=== PATIENT | male | born 1925 | race Caucasian/White ===

== ENCOUNTER → 2016-07-08 | Outpatient (CLI) | payer OTHER ==
[~2016-07-08] MED LIST: ACET-1311 PO; ASPI81TA28 PO; CARB1SOL8 OT; CIPR1TAB11 PO; COEN200C4 PO; GLIM4TAB2 PO; HYDR-5688 PO; INSDGI SC; INSUINJ7 SQ; LAMO25TA PO; MAGNSUS5 PO; METO-217 PO; MIRT30TA2 PO; MIRT30TA5 PO; PANT40TA PO; PENI-82 PO; QUET1TAB30 PO; RISP1TAB68 PO; SIMELIQ PO; SIMV40TA2 PO; SITA100T3 PO; SODI1ENE; VENL150T33 PO; [UNRECOGNIZED DRUG - CODE] OPB; [UNRECOGNIZED DRUG - CODE] PO
[2016-07-08 15:06] LABS: BLOOD UREA NITROGEN 13 mg/dl (7-18); BUN/CREATININE RATIO 11.1 (10-20); CALCIUM 8.4 mg/dl (8.5-10.1); CARBON DIOXIDE 27 mmol/L (21-32); CHLORIDE 105 mmol/L (98-107); GLUCOSE 274 mg/dl (70-99); POTASSIUM 4.4 mmol/L (3.5-5.1); SODIUM 141 mmol/L (136-145)
== END | disposition home or self-care (01) ==
LOC: C.LABFOXDH 14:32
PROVIDERS: ATTEND Internal Medicine
DX: F44.89 Other dissociative and conversion disorders (principal); R81 Glycosuria

== ENCOUNTER → 2016-08-18 | Outpatient (CLI) | payer OTHER ==
[2016-08-18 09:27] LABS: HEMATOCRIT 40.3 % (42-52); MEAN CELL VOLUME 88.6 fL (80-100); MEAN CORPUSCULAR HEMOGLOBIN 30.1 pg (25-34); MEAN PLATELET VOLUME 10.2 fL (7.4-10.4); PLATELET COUNT 197 K/uL (130-400); RED BLOOD COUNT 4.55 M/uL (4.7-6.1); WHITE BLOOD COUNT 6.25 K/uL (4.8-10.8)
[2016-08-18 09:55] LABS: ALB/GLOB RATIO 0.9 (0.9-2); ALKALINE PHOSPHATASE 120 U/L (45-117); ALT/SGPT 18 U/L (12-78); AST/SGOT 17 U/L (15-37); BLOOD UREA NITROGEN 16 mg/dl (7-18); BUN/CREATININE RATIO 13.7 (10-20); CALCIUM 8.5 mg/dl (8.5-10.1); CARBON DIOXIDE 26 mmol/L (21-32); CHLORIDE 110 mmol/L (98-107); POTASSIUM 3.7 mmol/L (3.5-5.1); SODIUM 145 mmol/L (136-145)
[2016-08-18 10:31] LABS: GLUCOSE 44 mg/dl (70-99)
== END ==
LOC: C.LABFOXAC 08:58
PROVIDERS: ATTEND Internal Medicine
DX: R41.81 Age-related cognitive decline (principal)

== ENCOUNTER → 2016-08-23 | Outpatient (CLI) | payer OTHER ==
[~2016-08-23] MED LIST changes: +OPTIRAY 320 IV PRN
--- NOTE | 2016-08-23 09:45 | DIAGNOSTIC IMAGING REPORT ---
CT brain combination HEAD COMBO CLINICAL HISTORY: MENTAL STATUS CHANGE TECHNIQUE: Transaxial acquisition pre and post intravenous contrast enhancement COMPARISON STUDY: 02/21/2016 FINDINGS: Mild mucosal thickening left maxillary sinus. Sinuses otherwise are clear. No evidence for acute intracranial hemorrhage. No evidence for pathologic postcontrast enhancement. Mild atrophy and chronic small vessel change of aging. IMPRESSION: Mild age-related change. No acute process. Electronically signed by: Jay Garcia M.D. 08/23/2016 9:43 AM Dictated Date/Time: 08/23/2016 9:41 AM
== END | disposition home or self-care (01) ==
LOC: C.CTS 09:13
PROVIDERS: ATTEND Nurse Practitioner Family
DX: R41.82 Altered mental status, unspecified (principal)

== ENCOUNTER → 2016-08-25 | Outpatient (CLI) | payer OTHER ==
[~2016-08-25] MED LIST changes: -OPTIRAY 320 IV PRN
--- NOTE | 2016-08-25 16:12 | EEG Procedure Note ---
EEG Procedure Note Date of Service Aug 25, 2016. Start / End Times Start Time: 2:13 PM End Time: 2:33 PM Referring Physician DO Lee History 89-year-old male with episodes of confusion. EEG for further evaluation of possible seizure etiology. Home Medication List Scheduled Alfuzosin HCl (Uroxatral), 10 MG PO HS Artificial Tear Solution (Natures Tears 0.1-0.3 %), 2 DROPS OPB BID Aspirin (Aspirin Ec), 81 MG PO DAILY Coenzyme Q10 (Ubidecarenone) (Coq-10), 200 MG PO DAILY Glimepiride (Glimepiride), 4 MG PO BID Insulin Glargine (Lantus), 40 UNITS SC QPM Insulin Glargine (Lantus), 60 UNITS SC QAM Magnesium Hydroxide (Milk Of Magnesia), 30 ML PO DAILY/PRN Metoprolol Succinate (Toprol Xl), 50 MG PO DAILY Mirtazapine (Mirtazapine Odt), 30 MG PO QPM Pantoprazole (Protonix), 40 MG PO DAILY Simvastatin (Zocor), 40 MG PO QPM Sitagliptin Phosphate (Januvia), 100 MG PO DAILY Venlafaxine Hcl (Venlafaxine Hcl Er), 150 MG PO DAILY Scheduled PRN Acetaminophen (Tylenol), 650 MG PO Q4 PRN for Pain or Fever Hydrocodone/Acetaminophen 5MG/325MG ([place] 5MG/325MG), 1-2 TAB PO Q4H PRN for Pain Simethicone (Simethicone), 30 ML PO Q4H PRN for Indigestion Description This is a 21 electrode EEG with a single channel dedicated to limited EKG. The electrodes were placed in accordance with the International 10-20 system. At the start of this recording the patient was in an awake state. The background was well organized with a symmetric mix of moderate amplitude theta/ alpha and beta frequencies. There was a symmetric moderate amplitude 7-8 Hz posterior dominant rhythm that was reactive to eye opening and closure. Hyperventilation was not done. Photic stimulation at various frequencies did not produce any abnormalities. Drowsiness was indicated by decrease in muscle artifact and slowing of the background rhythm. Interpretation This is an abnormal routine EEG secondary to mild background slowing. There was no electrographic seizures or epileptiform discharges. Clinical Correlation This EEG indicates a mild encephalopathy of nonspecific etiology.
== END | disposition home or self-care (01) ==
LOC: C.NEUR 13:34
PROVIDERS: ATTEND Nurse Practitioner Family
DX: R41.82 Altered mental status, unspecified (principal)

== ENCOUNTER → 2016-09-22 | Outpatient (CLI) | payer OTHER ==
[2016-09-22 09:00] LABS: BLOOD UREA NITROGEN 16 mg/dl (7-18); BUN/CREATININE RATIO 14.4 (10-20); CALCIUM 8.5 mg/dl (8.5-10.1); CARBON DIOXIDE 28 mmol/L (21-32); CHLORIDE 108 mmol/L (98-107); GLUCOSE 88 mg/dl (70-99); POTASSIUM 3.7 mmol/L (3.5-5.1); SODIUM 143 mmol/L (136-145)
[2016-09-22 09:21] LABS: ESTIMATED AVERAGE GLUCOSE 203 mg/dl; HA1C FLAG Normal (Normal)
== END | disposition home or self-care (01) ==
LOC: C.LABFOXAN 08:36
PROVIDERS: ATTEND Internal Medicine
DX: E11.9 Type 2 diabetes mellitus without complications (principal)

== ENCOUNTER → 2017-01-08 | Outpatient (CLI) | payer OTHER | LOC: C.LABFOXAC 08:21 | PROVIDERS: ATTEND Internal Medicine | DX: Z29.9 Encounter for prophylactic measures, unspecified (principal) ==

== ENCOUNTER → 2017-03-23 | Outpatient (CLI) | payer OTHER ==
[~2017-03-23] MED LIST changes: -HYDR-5688 PO; -MIRT30TA5 PO; -SIMELIQ PO; -SITA100T3 PO
[2017-03-23 08:38] LABS: BLOOD UREA NITROGEN 17 mg/dl (7-18); CALCIUM 8.8 mg/dl (8.5-10.1); CARBON DIOXIDE 28 mmol/L (21-32); CHLORIDE 107 mmol/L (98-107); ESTIMATED AVERAGE GLUCOSE 226 mg/dl; GLUCOSE 174 mg/dl (70-99); HA1C FLAG Normal (Normal); SODIUM 142 mmol/L (136-145)
--- NOTE | 2017-03-27 11:28 | CODING QUERY NO DIAGNOSIS ---
: 1927 TREATMENT RENDERED WITHOUT A DIAGNOSIS To promote full compliance with coding requirements relating to patient care, physician participation is requested in all cases of veterinary manager uncertainty. Please assist us with providing a diagnosis/symptom for the test(s) below: A diagnosis/symptom was not documented on your Order. A valid diagnosis/symptom is required to bill all insurances. Please remember that we are unable to code a diagnosis of rule out, probable, possible, questionable, or suspected. Tests that require a diagnosis: DOS: 03/23/17 * Partial Renal Panel DIAGNOSIS: * Hemoglobin A1C DIAGNOSIS: * Basic Metabolic Panel DIAGNOSIS: Provider Signature: Date: Thank you Dione Olson Health Information Management Once completed, please kindly fax back to [phone] For questions please call [phone]
== END | disposition home or self-care (01) ==
LOC: C.LABFOXAC 08:17
PROVIDERS: ATTEND Nurse Practitioner Family
DX: E11.40 Type 2 diabetes mellitus with diabetic neuropathy, unspecified (principal)

== ENCOUNTER → 2017-05-10 | Outpatient (CLI) | payer OTHER ==
[~2017-05-10] MED LIST changes: -CIPR1TAB11 PO; -PENI-82 PO
== END ==
LOC: C.LABFOXAC 08:17
PROVIDERS: ATTEND Urology
DX: C61 Malignant neoplasm of prostate (principal); C67.9 Malignant neoplasm of bladder, unspecified; N40.1 Benign prostatic hyperplasia with lower urinary tract symptoms

== ENCOUNTER → 2017-05-11 | Outpatient (CLI) | payer OTHER | END | disposition home or self-care (01) | LOC: C.LABFOXAC 12:42 | PROVIDERS: ATTEND Internal Medicine | DX: N39.0 Urinary tract infection, site not specified (principal) ==

== ENCOUNTER → 2017-06-23 | Outpatient (CLI) | payer OTHER ==
[2017-06-23 09:33] LABS: ESTIMATED AVERAGE GLUCOSE 194 mg/dl; HA1C FLAG Normal (Normal)
== END ==
LOC: C.LABFOXAC 08:22
PROVIDERS: ATTEND Internal Medicine
DX: E11.65 Type 2 diabetes mellitus with hyperglycemia (principal)

== ENCOUNTER → 2017-09-11 | Outpatient (CLI) | payer OTHER ==
[2017-09-11 13:05] LABS: BASO % 0.4 %; BASO ABS # 0.03 K/uL (0-0.2); EOS % 1.6 %; EOS ABS # 0.11 K/uL (0-0.5); HEMATOCRIT 43.6 % (42-52); HEMOGLOBIN 14.7 g/dL (14.0-18.0); IG# 0.04 K/uL (0.00-0.02); LYMPH % 17.9 %; LYMPH ABS # 1.27 K/uL (1.2-3.4); MEAN CELL VOLUME 91.8 fL (80-100); MEAN CORPUSCULAR HEMOGLOBIN 30.9 pg (25-34); MEAN CORPUSCULAR HGB CONC 33.7 g/dl (32-36); MEAN PLATELET VOLUME 10.8 fL (7.4-10.4); MONO ABS # 0.64 K/uL (0.11-0.59); NEUT % 70.5 %; NEUT ABS # 4.99 K/uL (1.4-6.5); PLATELET COUNT 212 K/uL (130-400); RED CELL DISTRIBUTION WIDTH CV 13.5 % (11.5-14.5); RED CELL DISTRIBUTION WIDTH SD 44.8 fL (36.4-46.3); WHITE BLOOD COUNT 7.08 K/uL (4.8-10.8)
== END ==
LOC: C.LABFOXAC 12:29
PROVIDERS: ATTEND Internal Medicine
DX: E13.621 Other specified diabetes mellitus with foot ulcer (principal)

== ENCOUNTER → 2017-09-20 | Outpatient (CLI) | payer OTHER ==
[2017-09-20 09:39] LABS: BLOOD UREA NITROGEN 18 mg/dl (7-18); CALCIUM 8.7 mg/dl (8.5-10.1); CARBON DIOXIDE 28 mmol/L (21-32); CREATININE 1.34 mg/dl (0.60-1.40); GLUCOSE 194 mg/dl (70-99); HEMOGLOBIN A1C 8.2 % (4.5-5.6); POTASSIUM 4.2 mmol/L (3.5-5.1); SODIUM 139 mmol/L (136-145)
== END | disposition home or self-care (01) ==
LOC: C.LABFOXAC 09:11
PROVIDERS: ATTEND Nurse Practitioner Family
DX: E11.9 Type 2 diabetes mellitus without complications (principal)

== ENCOUNTER → 2017-10-11 | Outpatient (CLI) | payer OTHER ==
[2017-10-11 08:17] LABS: HEMATOCRIT 40.1 % (42-52); HEMOGLOBIN 13.4 g/dL (14.0-18.0); MEAN CORPUSCULAR HEMOGLOBIN 30.7 pg (25-34); MEAN CORPUSCULAR HGB CONC 33.4 g/dl (32-36); MEAN PLATELET VOLUME 10.3 fL (7.4-10.4); PLATELET COUNT 195 K/uL (130-400); RED CELL DISTRIBUTION WIDTH CV 13.5 % (11.5-14.5); RED CELL DISTRIBUTION WIDTH SD 45.2 fL (36.4-46.3); WHITE BLOOD COUNT 6.73 K/uL (4.8-10.8)
[2017-10-11 08:21] LABS: ALKALINE PHOSPHATASE 148 U/L (45-117); ALT/SGPT 22 U/L (12-78); AST/SGOT 16 U/L (15-37); BLOOD UREA NITROGEN 16 mg/dl (7-18); CALCIUM 8.3 mg/dl (8.5-10.1); CARBON DIOXIDE 30 mmol/L (21-32); CREATININE 1.29 mg/dl (0.60-1.40); GLUCOSE 102 mg/dl (70-99); LIPASE 117 U/L (73-393); POTASSIUM 4.3 mmol/L (3.5-5.1); SODIUM 141 mmol/L (136-145); TOTAL PROTEIN 6.7 gm/dl (6.4-8.2)
== END | disposition home or self-care (01) ==
LOC: C.LABFOXAC 07:55
PROVIDERS: ATTEND Internal Medicine
DX: E11.65 Type 2 diabetes mellitus with hyperglycemia (principal)